=== PATIENT | male | born 1990 | race Caucasian/White ===

== ENCOUNTER 2017-06-27 12:58 | Emergency (ER) | payer OTHER ==
[~2017-06-27] VITALS: Ht 188 cm; Wt 80.3 kg
[~2017-06-27 12:58] MED LIST: AMOXICILLIN875 MG PO; BACTRIM DS TAB1 EACH PO; CONCERTA54 M1 PO; CYCLOBENZAPRINE5 MG PO; HYDROCODON-ACE1 EAC7 PO; IBUPROFEN 800800 M1 PO; KEFLEX500 MG PO; KLONOPIN1 MG PO; NAPROSYN500 MG PO; NOHOMEMEDICATIONS; NORCO 5-325 TA1 EACH PO
[2017-06-27] MEDS ORDERED: HYDROCODONE-AP1 EAC6 PO (13:50)
[2017-06-27] MEDS ORDERED: DOXYCYCLINE MO100 M1 PO (13:50)
[2017-06-27 14:12] VITALS: BP 116/70
== END 2017-06-27 14:14 | disposition home or self-care (01) ==
LOC: M.ERS 12:58
DX: L02.212 Cutaneous abscess of back [any part, except buttock and flank] (principal); M54.41 Lumbago with sciatica, right side; F17.210 Nicotine dependence, cigarettes, uncomplicated; F90.9 Attention-deficit hyperactivity disorder, unspecified type; F41.9 Anxiety disorder, unspecified